=== PATIENT | male | born 1970 | race Caucasian/White ===

== ENCOUNTER 2022-10-01 03:43 | Inpatient (IN) | payer OTHER ==
[~2022-10-01] VITALS: Ht 180.3 cm; Wt 72.5 kg
[2022-10-01 04:05] LABS: Calcium, Ionized (POC) 1.11 mmol/L (1.10-1.46); Chloride (POC) 102 mmol/L (98-108); Creatinine (POC) 0.8 mg/dL (0.8-1.3); Glucose (ISTAT POC) 145 mg/dL (70-99); Potassium (POC) 3.8 mmol/L (3.5-5.5); Sodium (POC) 139 mmol/L (135-148); Total CO2 (POC) 27 mmol/L (21-32)
[2022-10-01 04:05] LABS: BASOPHILS ABSOLUTE AUTO 0.07 K/mm3 (0.00-0.23); BASOPHILS PERCENT AUTO 1 % (0-2); EOSINOPHILS ABSOLUTE AUTO 0.21 K/mm3 (0.00-0.68); EOSINOPHILS PERCENT AUTO 3 % (0-6); Hematocrit 40.7 % (37.0-53.0); Hemoglobin 14.2 g/dL (13.5-17.5); IMMATURE GRAN ABSOLUTE AUTO 0.02 K/mm3 (0.00-0.10); IMMATURE GRAN PERCENT AUTO 0 % (0-1); LYMPHOCYTES ABSOLUTE AUTO 3.31 K/mm3 (0.84-5.20); LYMPHOCYTES PERCENT AUTO 42 % (21-46); MONOCYTES ABSOLUTE AUTO 0.82 K/mm3 (0.16-1.47); MONOCYTES PERCENT AUTO 10 % (4-13); Mean Corpuscular HGB 34.6 pg (26.0-34.0); Mean Corpuscular HGB Conc 34.9 g/dL (31.5-36.5); Mean Corpuscular Volume 99 fL (80-100); Mean Platelet Volume 9.2 fL (9.1-12.4); NEUTROPHILS ABSOLUTE AUTO 3.49 K/mm3 (1.96-9.15); NEUTROPHILS PERCENT AUTO 44 % (41-73); Platelet Count 307 K/mm3 (150-400); RDW Coefficient Variation 12.4 % (11.7-14.2); RDW Standard Deviation 45.7 fL (35.1-46.3); White Blood Cell Count 7.92 K/mm3 (4.00-11.30)
[2022-10-01 04:25] LABS: Albumin, Blood 3.4 g/dL (3.4-5.0); Bilirubin, Total 0.5 mg/dL (0.1-1.0); Bun/Creatinine Ratio 14.2 (12.0-20.0); Calcium, Blood 8.9 mg/dL (8.5-10.1); Creatinine, Blood 0.78 mg/dL (0.60-1.20); Globulin, Blood 3.5 g/dL (2.2-4.0); Magnesium, Blood 2.1 mg/dL (1.6-2.4); Potassium, Blood 3.6 mmol/L (3.5-5.5); Total Protein, Blood 6.9 g/dL (6.4-8.2)
--- NOTE | 2022-10-01 06:12 | NUR ---
PT ARRIVED FROM CHILD THERAPIST AT 0600. TR BAND IN PLACE TO RIGHT WRIST WITH 12ML. ACT 335 AT 0510 PER REPORT. PT DENIES CP AT THIS TIME, ON RA.
[2022-10-01 06:43] LABS: International Normalized Ratio 1.19; Prothrombin Time Results 12.4 Sec (9.7-11.5)
[2022-10-01] MEDS ORDERED: MIRT30 PO (07:47)
[2022-10-01] MEDS ORDERED: GABA300 PO (07:47)
[2022-10-01] MEDS ORDERED: IBUP800 PO (07:47)
[2022-10-01] MEDS ORDERED: MELA3 PO (07:48)
[2022-10-01] MEDS ORDERED: Robaxin750 MG PO (07:49)
--- NOTE | 2022-10-01 11:48 | NUR ---
REASSESSMENT PT HAS BEEN RESTING THROUGHOUT THE MORNING. DENIES CHEST PAIN. TR BAND DEFLATED THROUGHOUT THE MORNING WITHOUT COMPLICATION AND NOW OFF. PT HAS BEEN INSTRUCTED IN USE RESTRICTIONS FOR THAT ARM AND VERBALIZES UNDERSTANDING. PT IS IN SR/ST WITH RATE IN THE 90-LOW 100S. BP STABLE. LUNGS CLEAR, RA. EATING, VOIDING IN THE URINAL. ECHO COMPLETED. CONTINUING TO MONITOR.
--- NOTE | 2022-10-01 16:53 | NUR ---
SHIFT SUMMARY PT HAS CONTINUED TO DO WELL THROUGHOUT THE SHIFT. HIS TR BAND SITE REMAINS C/D/I, SOFT WITH NO HEMATOMA. DENIES CHEST PAIN. SR, BP STABLE. HE HAS HAD A COUPLE 4-5 BEAT RUNS OF V-TACH, WHICH DR. LANDIS SAID SHE ANTICIPATED. LUNGS REMAIN CLEAR, ON RA. HE IS EATING AND VOIDING WITHOUT ISSUE. HE GOT UP OUT OF BED TO THE CHAIR. CONTINUING TO MONITOR.
--- NOTE | 2022-10-01 19:20 | NUR ---
ASSUMED CARE FOR THIS PT. HE IS SITTING UP IN BED A&O X4, DENIES ANY CHEST PAIN OR SOB. TR BAND REMOVED FROM RIGHT RADIAL DURING THE DAY. SITE IS C/D/I AND WNL. PT REMAINS ON RA, AND BP'S HAVE BEEN STABLE.
[2022-10-02 03:38] LABS: Hematocrit 41.7 % (37.0-53.0); Hemoglobin 14.6 g/dL (13.5-17.5); Mean Corpuscular HGB 34.5 pg (26.0-34.0); Mean Corpuscular Volume 99 fL (80-100); Mean Platelet Volume 9.6 fL (9.1-12.4); Platelet Count 311 K/mm3 (150-400); RDW Coefficient Variation 12.6 % (11.7-14.2); RDW Standard Deviation 45.4 fL (35.1-46.3); Red Blood Cell Count 4.23 M/mm3 (4.30-5.90); White Blood Cell Count 9.64 K/mm3 (4.00-11.30)
[2022-10-02 03:55] LABS: Bun/Creatinine Ratio 16.4 (12.0-20.0); Calcium, Blood 8.8 mg/dL (8.5-10.1); Creatinine, Blood 0.67 mg/dL (0.60-1.20); Potassium, Blood 3.8 mmol/L (3.5-5.5)
--- NOTE | 2022-10-02 06:21 | NUR ---
Shift summary: Neuro: WNL. A&Ox4. No complaints of pain, numbness or tingling. Cardiac: SR with HR in 80s. BP WNL. No C/O chest pain or pressure. Troponin this am remains >125,000 and still denies chest pain. Resp: WNL. Clear lung sounds on RA. Denies SOB. GI/: Cardiac diet. Voids per urinal. ~975ml out of clear yellow urine. Other: TR band removed during day shift and site remains clean, dry and intact. Around 4am pt was changed to PCU status.
--- NOTE | 2022-10-02 08:00 | NUR ---
ASSUMED CARE PT ALERT AND ORIENTED. VS STABLE. HR NSR. BP STABLE. O2 SATS >90% ON RA. PT DENIES ANY PAIN THIS AM. RIGHT RADIAL SITE WITH CLEAR DRESSING AND ARM BOARD IN PLACE. NO SIGNS OF BLEEDING, BRUISING OR HEMATOMA. PT FOLLOWING RESTRICTIONS TO RIGHT ARM. PT STATES HE IS READY TO BE DISCHARGED AND IS ALREADY DRESSED IN HIS OWN CLOTHES THIS AM. WILL CONTINUE TO MONITOR CLOSELY
[2022-10-02 14:06] LABS: CHOL/HDL RATIO 6.7; Cholesterol 214 mg/dL (50-200); HDL Cholesterol 32 mg/dL (>39); Low Density Lipoprotein Chol 159 mg/dL (0-110); Triglycerides 117 mg/dL (30-160); Very Low Density Lipoprot Chol 23 mg/dL (6-32)
--- NOTE | 2022-10-02 16:55 | NUR ---
SHIFT SUMMARY PT CONTINUES TO BE ALERT AND ORIENTED. VS REMAIN STABLE. HR REMAINS NSR 80'S. PT UP AMBULATING INDEPENDENTLY IN ROOM. PT DENIES ANY PAIN. NICOTINE PATCH STARTED THIS SHIFT PT REQUESTED. PT RECEPTIVE TO SMOKING CESSATION. DR. WOOTEN ORDERED LIFE VEST TO BE PLACED PRIOR TO DISCHARGE. ORDER HAS BEEN FAXED AND REP HAS BEEN CALLED. WILL CONTINUE TO MONITOR AND REPORT TO ONCOMING RN
[2022-10-03 04:36] LABS: Bun/Creatinine Ratio 22.8 (12.0-20.0); Calcium, Blood 8.6 mg/dL (8.5-10.1); Creatinine, Blood 0.62 mg/dL (0.60-1.20)
--- NOTE | 2022-10-03 05:30 | NUR ---
Shift summary: Neuro: WNL. A&Ox4. No complaints of pain, numbness or tingling. Cardiac: SR w/PVC's, HR in 80s. BP WNL. No C/O chest pain or pressure. 12-lead EKG completed this morning per order. Resp: WNL. Clear lung sounds on RA. Denies SOB. GI/: Cardiac diet. Voids per urinal. Other: Previous TR band site on Right radial remains clean/dry/intact. Around 4am pt was changed to PCU status.
--- NOTE | 2022-10-03 08:49 | NUR ---
Am note Pt alert, oriented x4; calm and cooperative with care. Pt up sba in room. Pt denies pain, chest pain/pressure, sob, nausea, dizziness and numb/tingling. Tele sinus 80-90's, bp soft but stable. Spo2 >90% on ra, breathing even and unlabored. Abd soft, nontender normoactive bt, no bm since admission, pt states can be normal for him to go a couple of days without bm. Afebrile, other vss. Await approval and fitting for lifevest. Will continue to monitor.
--- NOTE | 2022-10-03 10:09 | NUR ---
Updated [facility] "[facility] days [facility]" and holding medication this am due to bp. New orders to give coreg and losartan if sbp 95 or greater. Will continue to monitor.
--- NOTE | 2022-10-03 16:25 | NUR ---
Shift Summary No acute changes noted t/o shift. Pt continues to deny chest pain/pressure t/o shift. Vss. Awaiting life vest fitting. Will continue to monitor.
[2022-10-04 04:24] LABS: Bun/Creatinine Ratio 20.7 (12.0-20.0); Creatinine, Blood 0.63 mg/dL (0.60-1.20); Potassium, Blood 4.2 mmol/L (3.5-5.5)
--- NOTE | 2022-10-04 06:55 | NUR ---
Pt arrives to PCU from ICU at approx 0650. Have not received report yet d/t events in ICU. Briefly, patient is stable, s/p STEMI and stent to proximal LAD on 10/01/22 via R radial site. He is oriented, pleasant and afebrile. Hoping to d/c today if he is able to get a Life Vest. Up independently. On room air with SpO2 >90%. SR, occasionally ST. VSS. Will continue to monitor and pass along to day shift.
--- NOTE | 2022-10-04 07:41 | NUR ---
Shift summary: Pt transferred to PCU at shift change. Neuro: WNL Cardiac: SR 70-90s and BP WNL. Denies any chest pain or pressure. Resp: Clear lung sounds, RA. Denies SOB GI/: Cardiac diet. Voids in toilet or urinal. Other: Plan to DC pt today once life vest is obtained. PIV in LFA WNL and SL.
--- NOTE | 2022-10-04 17:11 | NUR ---
SHIFT SUMMARY PT HAS BEEN RESTING QUIETLY IN ROOM, THEY HAVE AMBULATED INDEPENDENTLY IN THE HALLWAY MULTIPLE TIMES THROUGHOUT THE DAY. PT HAS BEEN POLITE AND COOPERATIVE WITH CARE. THIS RN WAS NOTIFIED THAT THE "ZOLL LIFE VEST" WAS STILL PENDING, THE PROVIDER WAS NOTIFIED. THE PT WAS GIVEN AN UPDATE ON THE STATUS AND THEY WERE UNDERSTANDING AND STATED THAT THEY WERE "WILLING TO WAIT LONG NEEDED." VITAL SIGNS HAVE REMAINED STABLE, NO ACUTE CHANGES IN CONDITION NOTED.
--- NOTE | 2022-10-04 20:56 | NUR ---
ASSUMPTION OF CARE THIS RN ASSUMED CARE OF PATIENT AT 1900. REPORT TAKEN FROM AGUSTIN PRIETO. RIGHT RADIAL SITE FULLY RECOVERED. NO COMPLICATIONS. DENIES CHEST PAIN/PRESSURE AND SOB. PATIENT IS INDEPENDENT WITH ADL'S AND HAS BEEN AMBULATORY THROUGHOUT THE UNIT. CALLING APPROPRIATELY AND ORIENTED FULLY. VITALS STABLE. NSR ON TELE. BED IN LOWEST POSITION AND CALL LIGHT WITHIN REACH.
--- NOTE | 2022-10-05 04:11 | NUR ---
SHIFT SUMMARY PATIENT WITH STABLE VITALS THROUGHOUT SHIFT. DENIES CHEST PAIN/PRESSURE AND SOB. RIGHT RADIAL SITE FULLY RECOVERED WITH NO COMPLICATIONS. [employer] MATEO SPOKE TO THIS RN REGARDING ST ELEVATION SEEN ON MONITOR THAT HAD INCREASED FROM PREVIOUS MEASUREMENT TAKEN ON 10/04 AROUND 0700, WHICH WAS 2.5, ST ELEVATION IS NOW MEASURING CLOSER TO 3.0-3.3. PATIENT CONTINUES TO DENY ALL CARDIAC SYMPTOMS. EKG DONE; SEE CHART. THIS RN SPOKE TO COMMERCIAL MAINTENANCE TECHNICIAN TRISTON AND ANGEL RN ABOUT CHANGES. THIS RN WILL REPORT TO NEXT SHIFT ABOUT CHANGES. NO CHANGES TO NEURO STATUS. PATIENT CONTINUES TO BE INDEPENDENT WITH ADL'S AND CALLS APPROPRIATELY. BED IN LOWEST POSITION AND CALL LIGHT WITHIN REACH. THIS RN WILL CONTINUE TO MONITOR UNTIL SHIFT CHANGE AT 0700.
[2022-10-05 05:27] LABS: Bun/Creatinine Ratio 24.9 (12.0-20.0); Calcium, Blood 9.2 mg/dL (8.5-10.1); Creatinine, Blood 0.6 mg/dL (0.60-1.20); Potassium, Blood 4.3 mmol/L (3.5-5.5)
--- NOTE | 2022-10-05 17:24 | NUR ---
SHIFT SUMMARY NOTIFICATION WAS RECEIVED THAT INSURANCE DENIED APPROVAL FOR ZOLL LIFE VEST, THE PROVIDER WAS NOTIFIED. THIS RN UPDATED THE PATIENT. PATIENT HAS AMBULATED INDEPENDENTLY IN THE HALLS THROUGHOUT THE DAY. ALL VITAL SIGNS HAVE REMAINED STABLE AND WITHIN TRENDS, THERE ARE NO ACUTE CHANGES IN CONDITION.
--- NOTE | 2022-10-05 21:28 | NUR ---
ASSUMPTION OF CARE THIS RN ASSUMED CARE OF PATIENT AT 1900. REPORT TAKEN FROM AGUSTIN PRIETO. VITALS STABLE. PATIENT ALERT AND ORIENTED X4. DENIES CHEST PAIN/PRESSURE AND SOB. NSR ON THE MONITOR WITH OCCASIONAL PVC'S WITH HR 70-80S. PATIENT ABLE TO MAKE NEEDS KNOWN AND CALLS APPROPRIATELY. OCCASIONALLY TAKES WALKS AROUND THE UNIT. BED IN LOWEST POSITION AND CALL LIGHT WITHIN REACH.
--- NOTE | 2022-10-06 04:39 | NUR ---
SHIFT SUMMARY NO ACUTE CHANGES OVERNIGHT. PATIENT CONTINUES TO DENY CHEST PAIN/PRESSURE AND SOB. NSR WITH OCCASIONAL PVC'S WITH HR 70-90'S. VSS. PATIENT INDEPENDENT WITH ADL'S. ALERT AND ORIENTED X4. ABLE TO MAKE NEEDS KNOWN AND USING CALL LIGHT APPROPRIATELY. SEE ASSESSMENT. BED IN LOWEST POSITION AND CALL LIGHT WITHIN REACH. THIS RN WILL CONTINUE TO MONITOR AND PROVIDE INTERVENTIONS NEEDED/ORDERED UNTIL SHIFT CHANGE AT 0700.
[2022-10-06] MEDS ORDERED: Aspir 8181 MG PO (15:28)
[2022-10-06] MEDS ORDERED: ATOR80 PO (15:28)
[2022-10-06] MEDS ORDERED: Acetaminophen650 M1 PO (15:28)
[2022-10-06] MEDS ORDERED: COREG12.5 M1 PO (15:36)
[2022-10-06] MEDS ORDERED: LOSA25 PO (15:38)
[2022-10-06] MEDS ORDERED: Nicoderm Cq1 EAC1 TOP (16:27)
[2022-10-06] MEDS ORDERED: NITR.4SL SL (16:29)
[2022-10-06] MEDS ORDERED: SPIR25 PO (16:30)
[2022-10-06] MEDS ORDERED: TICA90TA PO (16:30)
[2022-10-06] MEDS ORDERED: Chantix1 MG PO (16:32)
--- NOTE | 2022-10-06 18:29 | NUR ---
DISCHARGE SUMMARY PT AMBULATED OUT OF BUILDING ESCORTED BY FAMILY MEMBER. ALL DISCHARGE INSTRUCIONS AND PERSONAL BELONGINGS WERE IN THE PT'S POSSESSION AT THE TIME OF DISCHARGE. ALL QUESTIONS AND CONCERNS WERE ADDRESSED PRIOR TO DISCHARGE. PT STATED AN UNDERSTANDING OF DISCHARGE INSTRUCTIONS.
== END 2022-10-06 18:59 | disposition home or self-care (01) | DRG 246 ==
LOC: ER 03:43 → ICUW 04:06 → ICUE 04:06 → PCU 04:06 → ICUE 06:00 → PCU 10-04 06:51
PROVIDERS: Emergency Medicine; Internal Medicine Cardiovascular Disease; ADMIT Internal Medicine Interventional Cardiology
PROC: 027034Z Dilation of Coronary Artery, One Artery with Drug-eluting Intraluminal Device, Percutaneous Approach (ICD-10-PCS; principal; 2022-10-01)
PROC: 02C03ZZ Extirpation of Matter from Coronary Artery, One Artery, Percutaneous Approach (ICD-10-PCS; 2022-10-01)
PROC: 4A023N7 Measurement of Cardiac Sampling and Pressure, Left Heart, Percutaneous Approach (ICD-10-PCS; 2022-10-01)
PROC: B215YZZ Fluoroscopy of Left Heart using Other Contrast (ICD-10-PCS; 2022-10-01)
PROC: B211YZZ Fluoroscopy of Multiple Coronary Arteries using Other Contrast (ICD-10-PCS; 2022-10-01)
DX: I21.09 ST elevation (STEMI) myocardial infarction involving other coronary artery of anterior wall (principal); I50.41 Acute combined systolic (congestive) and diastolic (congestive) heart failure; I47.29 Other ventricular tachycardia; Z28.21 Immunization not carried out because of patient refusal; E10.9 Type 1 diabetes mellitus without complications; F17.210 Nicotine dependence, cigarettes, uncomplicated; E78.5 Hyperlipidemia, unspecified; I11.0 Hypertensive heart disease with heart failure; Z71.6 Tobacco abuse counseling
CPT/HCPCS: 36415; 76937; 80047; 80048; 80053; 80061; 83036; 83735; 84484; 85014; 85025; 85027; 85347; 85610; 86850; 86900; 86901; 92973; 93005; 93010; 93306; 93458; 96374; 97162; 97530; 99152; 99153; 99285-25; A9270; C1725; C1757; C1769; C1874; C1887; C1894; C8929; C9606; J1644; J2250; J3010; J3246; J7030; J7050; Q9957; Q9967

== ENCOUNTER 2023-03-13 06:02 | Day surgery (SDC) | payer OTHER ==
[~2023-03-13] VITALS: Ht 180.3 cm; Wt 71.0 kg
[2023-03-13] VITALS (8 sets, daily range): BP systolic 103–115; BP diastolic 72–80
[~2023-03-13 06:02] MED LIST: ATOR80 PO; Acetaminophen650 M1 PO; Aspir 8181 MG PO; CLOP75 PO; COREG12.5 M1 PO; Chantix1 MG PO; GABA300 PO; IBUP800 PO; LOSA25 PO; MELA3 PO; MIRT30 PO; NITR.4SL SL; Nicoderm Cq1 EAC1 TOP; Prozac40 MG PO; Robaxin750 MG PO; SPIR25 PO; TICA90TA PO; TRAZ50 PO
--- NOTE | 2023-03-13 13:16 | NUR ---
ASSUMED CARE PT AWAKE AND ALERT. VS STABLE. WOUND TO LEFT CHEST WALL WITH PRESSURE DRESSING INTACT. PT WEARING SING TO LEFT ARM ORDERED. PT EDUCATED ON LEFT ARM RESTRICTIONS. PT VERBALIZES UNDERSTANDING. WILL CONTINUE TO MONITOR CLOSELY
--- NOTE | 2023-03-13 17:08 | NUR ---
SHIFT SUMMARY PT REMAINS ALERT AND ORIENTED. VS STABLE. WOUND TO LEFT CHEST WALL REMAINS UNCHANGED. PT CONTINUES TO WEAR SLING TO LEFT ARM. PT COMPLAINS OF MILD PAIN TO LEFT SHOULDER AND MEDICATED NEEDED. WILL CONTINUE TO MONITOR AND REPORT TO ONCOMING RN
[2023-03-14 03:28] VITALS: BP 103/63
--- NOTE | 2023-03-14 06:13 | NUR ---
SHIFT SUMMARY PT IS A&OX4, IND IN THE ROOM, CALLS APPROPRIATELY, AND HAS DENIED ANY ANGINA, SOB, CHEST PRESSURE. PT DESATURATED TO 88% ONE TIME WHEN SLEEPING AND WAS PUT ON 1L NC. HE HAS NOT DESATURATED SINCE. THE PT HAD A ICP PLACED YESTERDAY AND HIS DRESSING IS C/D/I, AND HE HAS A LEFT ARM SLING ON. HE HAS BEEN MEDIATED FOR PAIN AT THE INCISION SITE AND THERE IS NO SIGNS OF WEEPING OR BLEEDING. PT HAS BEEN SR 60 S ON TELE. HIS BED IS IN LOW, AND CALL LIGHT IS IN REACH. SEE NOTES FOR ANY UPDATES.
[2023-03-14 08:00] VITALS: BP 114/63
[2023-03-14] MEDS ORDERED: CEPH500 PO (10:13)
[2023-03-14 15:27] VITALS: BP 137/61
--- NOTE | 2023-03-14 15:35 | NUR ---
CARE NOTE PT ARRIVED TO PCU AT APPROX. 1515 FROM PACKING ROOM SUPERVISOR. HE IS ALERT AND ORIENTED X 4, HE DENIED PAIN AT THIS TIME. SINGLE CHAMBER PACER PLACED PER PACKING ROOM SUPERVISOR RN REPORT, DRESSING IS DRY AND CLEAN. SLING IS IN PLACE. BILAT RADIAL PULSES ARE STRONG, SPO2 >95% VIA ROOM AIR. FAMILY IS AT BEDSIDE. TELE MONITORING IS IN PLACE. CALL LIGHT IS W/IN REACH.
== END 2023-03-14 11:00 | disposition home or self-care (01) ==
LOC: MHTC 06:02 → PCU 10:09 → MHTC 03-14 11:00
DX: I42.9 Cardiomyopathy, unspecified (principal); F17.200 Nicotine dependence, unspecified, uncomplicated; I25.10 Atherosclerotic heart disease of native coronary artery without angina pectoris; I25.2 Old myocardial infarction; I50.20 Unspecified systolic (congestive) heart failure; Z79.82 Long term (current) use of aspirin
CPT/HCPCS: 33249; 71045; 71046; 76937; 99152; 99153; A9270; C1721; C1894; C1895; C1898; J0690; J1644; J2250; J3010; J7030; J7040

== ENCOUNTER → 2023-06-30 | Outpatient (CLI) | payer OTHER ==
[~2023-06-30] MED LIST changes: +CEPH500 PO
[2023-06-30 19:06] LABS: BASOPHILS ABSOLUTE AUTO 0.06 K/mm3 (0.00-0.23); BASOPHILS PERCENT AUTO 1 % (0-2); EOSINOPHILS ABSOLUTE AUTO 0.19 K/mm3 (0.00-0.68); EOSINOPHILS PERCENT AUTO 2 % (0-6); Hematocrit 37.2 % (37.0-53.0); IMMATURE GRAN ABSOLUTE AUTO 0.03 K/mm3 (0.00-0.10); IMMATURE GRAN PERCENT AUTO 0 % (0-1); LYMPHOCYTES ABSOLUTE AUTO 2.75 K/mm3 (0.84-5.20); LYMPHOCYTES PERCENT AUTO 29 % (21-46); MONOCYTES ABSOLUTE AUTO 0.83 K/mm3 (0.16-1.47); MONOCYTES PERCENT AUTO 9 % (4-13); Mean Corpuscular HGB 34.8 pg (26.0-34.0); Mean Corpuscular HGB Conc 34.9 g/dL (31.5-36.5); Mean Corpuscular Volume 100 fL (80-100); Mean Platelet Volume 9.8 fL (9.1-12.4); NEUTROPHILS ABSOLUTE AUTO 5.48 K/mm3 (1.96-9.15); NEUTROPHILS PERCENT AUTO 59 % (41-73); Platelet Count 256 K/mm3 (150-400); RDW Coefficient Variation 14.2 % (11.7-14.2); RDW Standard Deviation 52.5 fL (35.1-46.3); Red Blood Cell Count 3.74 M/mm3 (4.30-5.90); White Blood Cell Count 9.34 K/mm3 (4.00-11.30)
[2023-06-30 20:29] LABS: Albumin, Blood 3.5 g/dL (3.4-5.0); Albumin/Globulin Ratio 1.2 (0.8-1.8); Bilirubin, Total 0.3 mg/dL (0.1-1.0); Bun/Creatinine Ratio 21.1 (12.0-20.0); Calcium, Blood 8.8 mg/dL (8.5-10.1); Creatinine, Blood 0.71 mg/dL (0.60-1.20); Potassium, Blood 4.3 mmol/L (3.5-5.5); Thyroid Stimulating Hormone 1.95 uIU/mL (0.360-4.800); Total Protein, Blood 6.5 g/dL (6.4-8.2)
== END | disposition home or self-care (01) ==
LOC: LAB SHORT 17:54 → LAB 17:54
PROVIDERS: Family Medicine
DX: R20.8 Other disturbances of skin sensation (principal)
CPT/HCPCS: 80053; 84443; 85025

== ENCOUNTER 2024-07-31 05:37 | Day surgery (SDC) | payer OTHER ==
[2024-07-31] VITALS (7 sets, daily range): BP systolic 108–125; BP diastolic 74–98
[~2024-07-31] VITALS: Ht 177.8 cm; Wt 78.0 kg
[~2024-07-31 05:37] MED LIST changes: +BUPR150ER PO; +METO25ER PO; +METO50ER PO; +MIRT15 PO; +PANT40 PO
[2024-07-31] MEDS ORDERED: NS 1,000 ML IV ONE ×2 (06:30→06:57)
[2024-07-31] MEDS ORDERED: Verapamil HCL 2.5 MG/ML 2ML Injection ONE (06:30)
[2024-07-31] MEDS ORDERED: NS 250 ML IV ONE (06:30)
[2024-07-31] MEDS ORDERED: Nitroglycerin 2 MG/20 ML BTL ONE (06:30)
[2024-07-31] MEDS ORDERED: Heparin Sodium 1000 Units/ML 10ML MDV ONE ×2 (06:30→06:57)
[2024-07-31] MEDS ORDERED: ELIQUIS5 M2 PO (06:32)
[2024-07-31] MEDS ORDERED: Atarax10 MG PO (06:33)
[2024-07-31] MEDS ORDERED: Clopidogrel Bisulfate 75 MG Tab ONE (07:40)
[2024-07-31] MEDS ORDERED: Midazolam HCl 1MG / ML 2ML Vial ONE (07:42)
[2024-07-31] MEDS ORDERED: FentaNYL Citrate 50 MCG/ML 2 ML Injection ONE (07:42)
--- NOTE | 2024-07-31 08:36 | NUR ---
PT BACK TO RECOVERY FROM LAB. PT A&O. PT GIVEN COFFEE BY GABE PRIETO. RADIAL SITE SOFT AND NON-TENDER PER PT. NO BLEEDING NOTED.
--- NOTE | 2024-07-31 09:34 | NUR ---
2cc removed from tr band. site soft and non-tender per pt. no bleeding noted.
--- NOTE | 2024-07-31 09:45 | NUR ---
2cc removed from tr band. site soft and non-tender per pt. no bleeding noted.
--- NOTE | 2024-07-31 10:05 | NUR ---
tr band fully deflated. site soft and non-tender per pt. no bleeding noted.
--- NOTE | 2024-07-31 10:56 | NUR ---
pt given dc instructions and verbalized understanding. iv out. pt changed. radial site soft and non-tender per pt. no bleeding noted. cloth dot, arm board, sling applied. pt refused wc and called for taxi. pt ambulated to [facility].
== END 2024-07-31 12:25 | disposition home or self-care (01) ==
LOC: MHTC 05:37
DX: I25.10 Atherosclerotic heart disease of native coronary artery without angina pectoris (principal); I25.2 Old myocardial infarction; I27.20 Pulmonary hypertension, unspecified; E78.5 Hyperlipidemia, unspecified; J44.9 Chronic obstructive pulmonary disease, unspecified; I25.5 Ischemic cardiomyopathy; I70.0 Atherosclerosis of aorta; K27.9 Peptic ulcer, site unspecified, unspecified as acute or chronic, without hemorrhage or perforation; Z79.01 Long term (current) use of anticoagulants; Z79.899 Other long term (current) drug therapy; Z95.810 Presence of automatic (implantable) cardiac defibrillator
CPT/HCPCS: 76937; 93458; 99152; 99153; A9270; C1769; C1887; C1894; J1644; J2250; J3010; J7030; J7050; Q9967

== ENCOUNTER 2024-08-12 09:58 | Day surgery (SDC) | payer OTHER ==
[2024-08-12] VITALS (8 sets, daily range): BP systolic 94–131; BP diastolic 64–79
[~2024-08-12] VITALS: Ht 177.8 cm; Wt 77.3 kg
[~2024-08-12 09:58] MED LIST changes: +Atarax10 MG PO; +ELIQUIS5 M2 PO; +NICO21TP TOP; +RANO500T PO
[2024-08-12] MEDS ORDERED: NS 1,000 ML IV ONE ×2 (12:41→13:05)
[2024-08-12] MEDS ORDERED: Heparin Sodium 1000 Units/ML 10ML MDV ONE (12:41)
[2024-08-12] MEDS ORDERED: NS 250 ML IV ONE (12:41)
[2024-08-12] MEDS ORDERED: Midazolam HCl 1MG / ML 2ML Vial ONE (13:05)
[2024-08-12] MEDS ORDERED: FentaNYL Citrate 50 MCG/ML 2 ML Injection ONE (13:05)
--- NOTE | 2024-08-12 14:06 | NUR ---
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 supine in bed, alert and oriented. Pt left femoral site wnl, no swelling no oozing at this time. Pt vss upon arrival to unit. food and refreshments offered. distal pulses palpable.
--- NOTE | 2024-08-12 16:45 | NUR ---
PT HOB ELEVATED TO 30 DEGREES FOOD AND REFRESHEMNTS PROVDIED. PT VSS SITE WNL. UNCHNAGED FROM PREVIOUS ASSESSMENT
--- NOTE | 2024-08-12 17:40 | NUR ---
discharge pt up to ambulate, site remains wnl. pt. vss remain stable. pt. iv removed, cathter intact. nadn. pt. discharge instructions reviewed in detail, no further questions at this time. pt able to get self dressed w/o difficulty. all belongings gathered and taken with pt to exit. pt friend to drive pt home. pt. lives a serenity krishna and will have access to someone if needed this pm.
== END 2024-08-12 18:00 | disposition home or self-care (01) ==
LOC: MHTC 09:58
DX: I73.9 Peripheral vascular disease, unspecified (principal); I25.10 Atherosclerotic heart disease of native coronary artery without angina pectoris; I50.22 Chronic systolic (congestive) heart failure; F32.A Depression, unspecified; Z95.5 Presence of coronary angioplasty implant and graft; Z79.01 Long term (current) use of anticoagulants
CPT/HCPCS: 36200; 75625; 75716; 76937; 99152; 99153; C1760; C1769; C1887; C1894; J1644; J2250; J3010; J7030; J7050; Q9967

== ENCOUNTER 2024-09-16 06:11 | Day surgery (SDC) | payer OTHER ==
[2024-09-16] VITALS (9 sets, daily range): BP systolic 90–120; BP diastolic 61–86
[~2024-09-16] VITALS: Ht 177.8 cm; Wt 81.0 kg
[~2024-09-16 06:11] MED LIST changes: -METO25ER PO; +Toprol Xl50 MG PO
[2024-09-16] MEDS ORDERED: NS 500 ML IV ONE (06:57)
[2024-09-16] MEDS ORDERED: NS 1,000 ML IV ONE ×2 (06:58→07:23)
[2024-09-16] MEDS ORDERED: Heparin Sodium 1000 Units/ML 10ML MDV ONE ×2 (06:58→08:56)
[2024-09-16] MEDS ORDERED: Nitroglycerin 2 MG/20 ML BTL ONE (06:58)
[2024-09-16] MEDS ORDERED: Midazolam HCl 1MG / ML 2ML Vial ONE ×2 (07:23→07:52)
[2024-09-16] MEDS ORDERED: FentaNYL Citrate 50 MCG/ML 2 ML Injection ONE ×2 (07:23→07:52)
[2024-09-16] MEDS ORDERED: CeFAZolin Sodium 2,000 MG VIAL ONE (08:32)
[2024-09-16] MEDS ORDERED: NS 100 ML IV ONE (08:32)
[2024-09-16] MEDS ORDERED: Protamine Sulfate 50 MG Amp ONE (09:10)
--- NOTE | 2024-09-16 09:43 | NUR ---
PATIENT ARRIVED BACK TO RECOVERY ROOM WITH HOB FLAT. RIGHT GROIN SITE C/D/I SOFT/NONTENDER, NO EVIDENCE OF BLEEDING. VSS ON RA. PATIENT DENYING ANY PAIN. PULSES PRESENT
[2024-09-16] MEDS ORDERED: Clopidogrel Bisulfate 300 MG Cap ONE (10:15)
--- NOTE | 2024-09-16 11:05 | NUR ---
HOB ELEVATED 30 DEGREES. R GROIN SITE C/D/I SOFT/NONTENDER, NO EVIDENCE OF BLEEDING. VSS ON RA.
--- NOTE | 2024-09-16 11:51 | NUR ---
PATIENT TOLERATING PO INTAKE WELL. VSS ON RA. R GROIN SITE C/D/I SOFT/NONTENDER, NO EVIDENCE OF BLEEDING. PATIENT RESTING COMFORTABLY IN BED. HOB 30 DEGREES
--- NOTE | 2024-09-16 12:30 | NUR ---
PATIENT STANDING AND AMBULATING WITHOUT DIFFIUCLTY. R GROIN SITE C/D/I SOFT/NONTENDER, NO EVIDENCE OF BLEEDING. VSS ON RA.
--- NOTE | 2024-09-16 13:04 | NUR ---
pt given dc instructions and verbalized understanding. iv out. pt changed. pt called for taxi and stated he would like to wait for it to arrive in the [place]. pt declined wc ride and ambulated to [place] w/o assistance.
== END 2024-09-16 23:25 | disposition home or self-care (01) ==
LOC: MHTC 06:11
DX: I70.8 Atherosclerosis of other arteries (principal); I73.9 Peripheral vascular disease, unspecified; E78.5 Hyperlipidemia, unspecified; I10 Essential (primary) hypertension; I25.10 Atherosclerotic heart disease of native coronary artery without angina pectoris; F32.9 Major depressive disorder, single episode, unspecified; I25.2 Old myocardial infarction; Z79.899 Other long term (current) drug therapy; Z87.891 Personal history of nicotine dependence
CPT/HCPCS: 37252; 75710; 76937; 85347; 99152; 99153; A9270; C1725; C1753; C1760; C1769; C1887; C1894; C9764; J0690; J1644; J2250; J2720; J3010; J7030; J7050; Q9967

== ENCOUNTER 2024-09-30 06:38 | Day surgery (SDC) | payer OTHER ==
[~2024-09-30] VITALS: Ht 177.8 cm; Wt 81.0 kg
[2024-09-30] VITALS (8 sets, daily range): BP systolic 85–122; BP diastolic 60–80
[2024-09-30] MEDS ORDERED: Heparin Sodium 1000 Units/ML 10ML MDV ONE (06:55)
[2024-09-30] MEDS ORDERED: NS 1,000 ML IV ONE ×2 (06:55→07:53)
[2024-09-30] MEDS ORDERED: NS 250 ML IV ONE (06:55)
[2024-09-30] MEDS ORDERED: NS 100 ML IV ONE (06:55)
[2024-09-30] MEDS ORDERED: Midazolam HCl 1MG / ML 2ML Vial ONE (07:51)
[2024-09-30] MEDS ORDERED: FentaNYL Citrate 50 MCG/ML 2 ML Injection ONE (07:53)
[2024-09-30] MEDS ORDERED: Protamine Sulfate 50 MG Amp ONE (08:47)
--- NOTE | 2024-09-30 12:00 | NUR ---
PT AMB TO BATHROOM /C SBA. TOLERATED WELL. NEG BLEEDING OR SWELLING L GROIN AREA.
--- NOTE | 2024-09-30 12:30 | NUR ---
PT VERBALIZED UNDERSTANDING OF WRITTEN AND VERBAL D/C INST. IV REMOVED. PT TAKEN OUT OF THE HRT CENTER VIA W/C.
== END 2024-09-30 12:40 | disposition home or self-care (01) ==
LOC: MHTC 06:38
DX: I73.9 Peripheral vascular disease, unspecified (principal); I25.10 Atherosclerotic heart disease of native coronary artery without angina pectoris; I25.2 Old myocardial infarction; I11.0 Hypertensive heart disease with heart failure; I50.22 Chronic systolic (congestive) heart failure; E78.5 Hyperlipidemia, unspecified; F17.200 Nicotine dependence, unspecified, uncomplicated; Z95.5 Presence of coronary angioplasty implant and graft; Z79.01 Long term (current) use of anticoagulants; Z79.02 Long term (current) use of antithrombotics/antiplatelets; Z79.899 Other long term (current) drug therapy
CPT/HCPCS: 37252; 75625; 75710; 76937; 99152; 99153; C1725; C1753; C1769; C1887; C1894; C9764; J1644; J2250; J2720; J3010; J7030; J7050; Q9967

== ENCOUNTER 2025-01-24 17:41 | Emergency (ER) | payer OTHER ==
[~2025-01-24] VITALS: Ht 180.3 cm; Wt 81.7 kg
[2025-01-24 18:36] LABS: BASOPHILS ABSOLUTE AUTO 0.05 K/mm3 (0.00-0.23); BASOPHILS PERCENT AUTO 1 % (0-2); EOSINOPHILS ABSOLUTE AUTO 0.09 K/mm3 (0.00-0.68); EOSINOPHILS PERCENT AUTO 2 % (0-6); Hematocrit 42.2 % (37.0-53.0); Hemoglobin 14.3 g/dL (13.5-17.5); IMMATURE GRAN ABSOLUTE AUTO 0.01 K/mm3 (0.00-0.10); IMMATURE GRAN PERCENT AUTO 0 % (0-1); LYMPHOCYTES ABSOLUTE AUTO 2.68 K/mm3 (0.84-5.20); LYMPHOCYTES PERCENT AUTO 44 % (21-46); MONOCYTES ABSOLUTE AUTO 0.65 K/mm3 (0.16-1.47); MONOCYTES PERCENT AUTO 11 % (4-13); Mean Corpuscular HGB 32.1 pg (26.0-34.0); Mean Corpuscular HGB Conc 33.9 g/dL (31.5-36.5); Mean Corpuscular Volume 95 fL (80-100); NEUTROPHILS ABSOLUTE AUTO 2.58 K/mm3 (1.96-9.15); NEUTROPHILS PERCENT AUTO 43 % (41-73); Platelet Count 251 K/mm3 (150-400); RDW Coefficient Variation 13.4 % (11.7-14.2); RDW Standard Deviation 46.7 fL (35.1-46.3); Red Blood Cell Count 4.45 M/mm3 (4.30-5.90); White Blood Cell Count 6.06 K/mm3 (4.00-11.30)
[2025-01-24 19:10] LABS: Albumin, Blood 3.8 g/dL (3.4-5.0); Albumin/Globulin Ratio 1.1 (0.8-1.8); Bilirubin, Total 0.6 mg/dL (0.1-1.0); Bun/Creatinine Ratio 27.4 (12.0-20.0); Calcium, Blood 8.8 mg/dL (8.5-10.1); Creatinine, Blood 0.73 mg/dL (0.60-1.20); Globulin, Blood 3.5 g/dL (2.2-4.0); Total Protein, Blood 7.3 g/dL (6.4-8.2)
[2025-01-24] MEDS ORDERED: NS 1,000 ML IV SCH (19:45)
[2025-01-24] MEDS ORDERED: Albuterol 2.5 MG/3 ML VIAL INH SCH (19:50)
[2025-01-24] MEDS ORDERED: Sodium Zirconium Cyclosilicate 10 GM Packet PO ONE (19:50)
[2025-01-24] MEDS ORDERED: Dextrose 50% 50 ML Syringe IV ONE (19:50)
[2025-01-24] MEDS ORDERED: Calcium Gluconate 10% 100 MG/ML INJ IV ONE (19:50)
[2025-01-24] MEDS ORDERED: Furosemide 10 MG/ML 4ML Vial IV ONE (19:50)
[2025-01-24] MEDS ORDERED: Insulin Regular 100 Unit/ML 1ML Dose IV ONE (19:50)
[2025-01-24] MEDS ORDERED: Dextrose 50% 50 ML Vial IV ONE (19:55)
[2025-01-24 21:44] LABS: Bun/Creatinine Ratio 22.1 (12.0-20.0); Calcium, Blood 8.8 mg/dL (8.5-10.1); Creatinine, Blood 0.77 mg/dL (0.60-1.20); Potassium, Blood 4.1 mmol/L (3.5-5.5)
[2025-01-24 21:45] VITALS: BP 98/67
[2025-01-24] MEDS ORDERED: LOKELMA10 GM PO (21:58)
== END 2025-01-24 22:34 | disposition home or self-care (01) ==
LOC: ER 17:41
PROVIDERS: Emergency Medicine
DX: E87.5 Hyperkalemia (principal); Z79.899 Other long term (current) drug therapy; Z79.01 Long term (current) use of anticoagulants; Z79.891 Long term (current) use of opiate analgesic; F17.200 Nicotine dependence, unspecified, uncomplicated
CPT/HCPCS: 80048; 80053; 85025; 93005; 93010; 94644; 94664; 96374; 96375; 99284-25; A9270; J0612; J1815; J1938; J1940; J7030; J7799

== ENCOUNTER → 2025-06-16 | Outpatient (CLI) | payer OTHER ==
[~2025-06-16] MED LIST changes: +LOKELMA10 GM PO
[2025-06-16 19:40] LABS: Ferritin, Serum 27.0 ng/mL (26-388); Total Iron Binding Capacity 331.0 ug/dL (250-450)
== END | disposition home or self-care (01) ==
LOC: LAB SHORT 11:45 → LAB 11:45
PROVIDERS: Family Medicine
DX: R79.0 Abnormal level of blood mineral (principal); R73.03 Prediabetes
CPT/HCPCS: 82728; 83036; 83540; 83550

== ENCOUNTER 2025-06-28 00:48 | Day surgery (SDC) | payer OTHER ==
[2025-06-28] MEDS ORDERED: Sod Ferric Gluc Complx/Sucrose 125 MG in NS 100 ML IV SCH (06:00)
[2025-06-28 08:36] VITALS: BP 106/84
[2025-06-28] MEDS ORDERED: CLOBETASOL 0.0560 G1 TOP (09:08)
[2025-06-28] MEDS ORDERED: DOCU100 PO (09:09)
[2025-06-28] MEDS ORDERED: FARXIGA10 MG PO (09:09)
[2025-06-28] MEDS ORDERED: MIRALAX17 GM PO (09:10)
[2025-06-28] MEDS ORDERED: Isosorbide Mono30 MG PO (09:10)
== END 2025-06-28 09:26 | disposition home or self-care (01) ==
LOC: ATC 00:48
DX: D50.8 Other iron deficiency anemias (principal); I50.22 Chronic systolic (congestive) heart failure; I25.118 Atherosclerotic heart disease of native coronary artery with other forms of angina pectoris; F17.220 Nicotine dependence, chewing tobacco, uncomplicated; Z79.01 Long term (current) use of anticoagulants; Z79.02 Long term (current) use of antithrombotics/antiplatelets; Z79.899 Other long term (current) drug therapy
CPT/HCPCS: 96365; J2916

== ENCOUNTER 2025-07-06 00:14 | Day surgery (SDC) | payer OTHER ==
[~2025-07-06 00:14] MED LIST changes: +CLOBETASOL 0.0560 G1 TOP; +DOCU100 PO; +FARXIGA10 MG PO; +Isosorbide Mono30 MG PO; +MIRALAX17 GM PO
[2025-07-06] MEDS ORDERED: Sod Ferric Gluc Complx/Sucrose 125 MG in NS 100 ML IV SCH (01:00)
[2025-07-06 14:40] VITALS: BP 118/74
== END 2025-07-06 15:44 | disposition home or self-care (01) ==
LOC: ATC 00:14
DX: D50.8 Other iron deficiency anemias (principal); I25.10 Atherosclerotic heart disease of native coronary artery without angina pectoris; I50.22 Chronic systolic (congestive) heart failure; I25.118 Atherosclerotic heart disease of native coronary artery with other forms of angina pectoris; I25.2 Old myocardial infarction; Z87.891 Personal history of nicotine dependence; Z79.01 Long term (current) use of anticoagulants; Z79.02 Long term (current) use of antithrombotics/antiplatelets; Z79.899 Other long term (current) drug therapy
CPT/HCPCS: 96365; J2916

== ENCOUNTER 2025-07-12 00:57 | Day surgery (SDC) | payer OTHER ==
[2025-07-12] MEDS ORDERED: Sod Ferric Gluc Complx/Sucrose 125 MG in NS 100 ML IV SCH (01:00)
[2025-07-12 15:37] VITALS: BP 117/75
== END 2025-07-12 16:32 | disposition home or self-care (01) ==
LOC: ATC 00:57
DX: D50.8 Other iron deficiency anemias (principal); I25.10 Atherosclerotic heart disease of native coronary artery without angina pectoris; I25.2 Old myocardial infarction; I50.22 Chronic systolic (congestive) heart failure; I73.9 Peripheral vascular disease, unspecified; F41.8 Other specified anxiety disorders; R73.03 Prediabetes; F17.220 Nicotine dependence, chewing tobacco, uncomplicated
CPT/HCPCS: 96365; J2916

== ENCOUNTER 2025-07-19 02:14 | Day surgery (SDC) | payer OTHER ==
[~2025-07-19 02:14] MED LIST changes: +Sod Ferric Gluc Complx/Sucrose 125 MG in NS 100 ML IV SCH
[2025-07-19 14:38] VITALS: BP 112/73
== END 2025-07-19 15:32 | disposition home or self-care (01) ==
LOC: ATC 02:14
DX: D50.8 Other iron deficiency anemias (principal); I25.10 Atherosclerotic heart disease of native coronary artery without angina pectoris; I25.2 Old myocardial infarction; I50.22 Chronic systolic (congestive) heart failure; I73.9 Peripheral vascular disease, unspecified; F41.8 Other specified anxiety disorders; R73.03 Prediabetes; F17.220 Nicotine dependence, chewing tobacco, uncomplicated; Z79.899 Other long term (current) drug therapy; Z95.0 Presence of cardiac pacemaker
CPT/HCPCS: 96365; J2916

== ENCOUNTER 2025-07-26 00:35 | Day surgery (SDC) | payer OTHER ==
[~2025-07-26 00:35] MED LIST changes: -Sod Ferric Gluc Complx/Sucrose 125 MG in NS 100 ML IV SCH
[2025-07-26] MEDS ORDERED: Sod Ferric Gluc Complx/Sucrose 125 MG in NS 100 ML IV SCH (01:00)
[2025-07-26 07:54] VITALS: BP 120/76
[2025-07-26] MEDS ORDERED: ZOLP10 PO (08:08)
== END 2025-07-26 08:56 | disposition home or self-care (01) ==
LOC: ATC 00:35
DX: D50.8 Other iron deficiency anemias (principal); I50.22 Chronic systolic (congestive) heart failure; I25.118 Atherosclerotic heart disease of native coronary artery with other forms of angina pectoris; R73.03 Prediabetes; I51.3 Intracardiac thrombosis, not elsewhere classified; I70.8 Atherosclerosis of other arteries; I25.2 Old myocardial infarction; I73.9 Peripheral vascular disease, unspecified; J44.9 Chronic obstructive pulmonary disease, unspecified; Z87.891 Personal history of nicotine dependence; Z79.01 Long term (current) use of anticoagulants; Z79.02 Long term (current) use of antithrombotics/antiplatelets; Z79.84 Long term (current) use of oral hypoglycemic drugs; Z79.899 Other long term (current) drug therapy; Z95.810 Presence of automatic (implantable) cardiac defibrillator
CPT/HCPCS: 96365; J2916

== ENCOUNTER 2025-08-02 00:57 | Day surgery (SDC) | payer OTHER ==
[~2025-08-02 00:57] MED LIST changes: +ZOLP10 PO
[2025-08-02] MEDS ORDERED: Sod Ferric Gluc Complx/Sucrose 125 MG in NS 100 ML IV SCH (01:00)
[2025-08-02 08:25] VITALS: BP 117/78
== END 2025-08-02 09:19 | disposition home or self-care (01) ==
LOC: ATC 00:57
DX: D50.8 Other iron deficiency anemias (principal); I25.2 Old myocardial infarction; I25.10 Atherosclerotic heart disease of native coronary artery without angina pectoris; I50.22 Chronic systolic (congestive) heart failure; R73.03 Prediabetes; Z79.01 Long term (current) use of anticoagulants; Z79.899 Other long term (current) drug therapy; Z87.891 Personal history of nicotine dependence
CPT/HCPCS: 96365; J2916

== ENCOUNTER 2025-08-09 01:46 | Day surgery (SDC) | payer OTHER ==
[~2025-08-09 01:46] MED LIST changes: +Sod Ferric Gluc Complx/Sucrose 125 MG in NS 100 ML IV SCH
[2025-08-09 15:40] VITALS: BP 93/64
== END 2025-08-09 16:41 | disposition home or self-care (01) ==
LOC: ATC 01:46
DX: D50.8 Other iron deficiency anemias (principal); I25.2 Old myocardial infarction; I34.0 Nonrheumatic mitral (valve) insufficiency; I50.22 Chronic systolic (congestive) heart failure; I25.118 Atherosclerotic heart disease of native coronary artery with other forms of angina pectoris; E78.00 Pure hypercholesterolemia, unspecified; F17.200 Nicotine dependence, unspecified, uncomplicated; R73.03 Prediabetes; Z79.84 Long term (current) use of oral hypoglycemic drugs; Z79.899 Other long term (current) drug therapy; Z95.810 Presence of automatic (implantable) cardiac defibrillator
CPT/HCPCS: 96365; J2916

== ENCOUNTER 2025-08-16 02:24 | Day surgery (SDC) | payer OTHER ==
[2025-08-16 13:44] VITALS: BP 116/78
== END 2025-08-16 14:53 | disposition home or self-care (01) ==
LOC: ATC 02:24
DX: D50.8 Other iron deficiency anemias (principal); I25.2 Old myocardial infarction; I50.22 Chronic systolic (congestive) heart failure; I25.119 Atherosclerotic heart disease of native coronary artery with unspecified angina pectoris; Z79.899 Other long term (current) drug therapy
CPT/HCPCS: 96365; J2916